=== PATIENT | male | born 1960 | race Caucasian/White ===

== ENCOUNTER 2016-12-30 11:24 | Day surgery (SDC) | payer BC ==
[~2016-12-30] VITALS: Ht 180.3 cm; Wt 73.2 kg
[2016-12-30 11:55] VITALS: BP 104/75
[2016-12-30] MEDS ORDERED: ASPI-496 PO (12:08)
[2016-12-30] MEDS ORDERED: MIDAZOLAM 1 MG/ML, 5ML ONE (12:49)
[2016-12-30] MEDS ORDERED: FENTANYL PF 100 MCG/2ML ONE (12:50)
[2016-12-30] MEDS ORDERED: BIVALIRUDIN 250 MG ONE (12:50)
[2016-12-30] MEDS ORDERED: HEPARIN 1,000 UNITS/ML, 10ML ONE (12:50)
[2016-12-30] MEDS ORDERED: NITROGLYCERIN 5 MG/ML, 10ML ONE (12:50)
[2016-12-30] MEDS ORDERED: VERAPAMIL 2.5 MG/ML, 2ML ONE (12:50)
[2016-12-30] MEDS ORDERED: LIDOCAINE 2%, 20ML ONE (12:50)
[2016-12-30] MEDS ORDERED: TICAGRELOR 90 MG TABLET ONE (12:50)
[2016-12-30] MEDS ORDERED: PRASUGREL 10 MG TABLET ONE (12:52)
[2016-12-30] MEDS ORDERED: SODIUM CHLORIDE 0.9% 1,000 ML IV SCH (14:30)
== END 2016-12-30 16:54 ==
LOC: CACL 11:24
PROVIDERS: ATTEND Internal Medicine Cardiovascular Disease
DX: I25.10 Atherosclerotic heart disease of native coronary artery without angina pectoris (principal); Z72.89 Other problems related to lifestyle
CPT/HCPCS: 93458; 99156; C1894; J1644; J2250; J3010; J3490; Q9967; J0583